=== PATIENT | female | born 1975 | race Caucasian/White ===

== ENCOUNTER 2017-01-05 06:31 | Emergency (ER) | payer OTHER ==
[~2017-01-05] VITALS: Ht 149.9 cm; Wt 65.0 kg
[~2017-01-05 06:31] MED LIST: PENI500T PO; RANI150 PO; VALT1TAB26 PO; VALT500T PO
[2017-01-05 06:34] VITALS: BP 131/64; PULSE 65; RESP 16; TEMP 97.7; O2SAT 100
[2017-01-05] MEDS ORDERED: OMEP40CA2 PO (06:42)
[2017-01-05] MEDS ORDERED: SODIUM CHLOR 0.9% 1000 ML INJ 1,000 ML IV SCH (07:05)
[2017-01-05] MEDS ORDERED: MORPHINE SULFATE 4 MG/ML INJ IV PUSH ONE ×2 (07:15→08:45)
[2017-01-05] MEDS ORDERED: ONDANSETRON HCL 4 MG/2 ML VIAL IVP ONE (07:15)
[2017-01-05] MEDS ORDERED: SODIUM CHLORIDE 0.9% FLUSH 10 ML FLUSH IV FLUSH PRN (07:15)
--- NOTE | 2017-01-05 07:15 | PD ---
HPI Chief Complaint: Abdominal Pain Time Seen by Provider: 06:45 Travel History International Travel<30 days: No Contact w/Intl Traveler<30days: No Traveled to known affect area: No History of Present Illness HPI 41-year-old female presents to the emergency department for right upper quadrant abdominal pain with nausea. Patient was seen at [facility] 3 weeks ago and identified to have gallbladder disease. Patient was encouraged to follow-up as outpatient with general surgeon but has not yet had the opportunity to do so. Patient reports that she did have grown chicken reportedly last night. Patient rates pain as moderate to severe. Patient is unable to identify exacerbating or alleviating factors. Patient is [place] and Irish-speaking with spouse at bedside who is also [place] and Irish speaking do not desire [employer] translation service. Patient reports pain 10 over 10 in intensity. PFSH Past Medical History Narrative Medical GERD, gallbladder disease; no tobacco use; no surgery; nursing notes reviewed Hx Anticoagulant Therapy: No Cardiovascular Problems: No Chemotherapy: No Cerebrovascular Accident: No Diabetes: No Diminished Hearing: No GERD: Yes Reproductive: Yes (HERPES) Respiratory: No Immunizations Current: No Tetanus Vaccination: < 5 Years ?: Not LMP: 12/17/2016 : 3 Para: 2 Miscarriage: 0 : 1 Past Surgical History Surgical History: No Previous Surgery Hysterectomy: No Social History Alcohol Use: No Tobacco Use: No Substance Use: No Allergies-Medications (Allergen,Severity, Reaction): Coded Allergies: No Known Allergies (Verified , 02/12/16) Reported Meds & Prescriptions Reported Meds & Active Scripts Active Phenergan (Promethazine HCl) 25 Mg Tablet 25 Mg PO Q6H PRN Hilger (Hydrocodone-Acetaminophen) 5-325 mg Tab 1 Tab PO Q4H PRN Reported Omeprazole 40 Mg Cap 40 Mg PO DAILY Review of Systems Except as stated in HPI: all other systems reviewed are Neg Physical Exam Narrative GENERAL: Well-developed well-nourished female in obvious discomfort no respiratory distress SKIN: Warm and dry. HEAD: Normocephalic. EYES: No scleral icterus. No injection or drainage. NECK: Supple, trachea midline. No JVD or lymphadenopathy. CARDIOVASCULAR: Regular rate and rhythm without murmurs, gallops, or rubs. RESPIRATORY: Breath sounds equal bilaterally. No accessory muscle use. GASTROINTESTINAL: Abdomen soft, non-tender, no guarding or rebound. No clinical Lopez sign. Nondistended. MUSCULOSKELETAL: No cyanosis, or edema. BACK: Nontender without obvious deformity. No CVA tenderness. Data Data Last Documented VS Vital Signs Date Time Temp Pulse Resp B/P (MAP) Pulse Ox O2 Delivery O2 Flow Rate FiO2 01/05/17 09:25 72 16 116/72 (87) 97 01/05/17 06:34 97.7 Room Air Orders Orders Complete Blood Count With Diff (01/05/17 07:05) Comprehensive Metabolic Panel (01/05/17 07:05) Lipase (01/05/17 07:05) Iv Access Insert/Monitor (01/05/17 07:05) Morphine Inj (Morphine Inj) (01/05/17 07:15) Ondansetron Inj (Zofran Inj) (01/05/17 07:15) Sodium Chlor 0.9% 1000 Ml Inj (Ns 1000 M (01/05/17 07:05) Sodium Chloride 0.9% Flush (Ns Flush) (01/05/17 07:15) Ed Poc Ultrasound (01/05/17 07:05) Ed Urine Pregnancytest Poc (01/05/17 07:16) Us Abdomen Gallbladder (01/05/17 07:17) Morphine Inj (Morphine Inj) (01/05/17 08:45) Ondansetron Inj (Zofran Inj) (01/05/17 08:45) Labs Laboratory Tests Test 01/05/17 07:17 White Blood Count 6.6 TH/MM3 Red Blood Count 4.27 MIL/MM3 Hemoglobin 12.5 GM/DL Hematocrit 38.0 % Mean Corpuscular Volume 88.9 FL Mean Corpuscular Hemoglobin 29.2 PG Mean Corpuscular Hemoglobin Concent 32.9 % Red Cell Distribution Width 13.4 % Platelet Count 209 TH/MM3 Mean Platelet Volume 9.6 FL Neutrophils (%) (Auto) 54.9 % Lymphocytes (%) (Auto) 33.3 % Monocytes (%) (Auto) 7.8 % Eosinophils (%) (Auto) 3.5 % Basophils (%) (Auto) 0.5 % Neutrophils # (Auto) 3.6 TH/MM3 Lymphocytes # (Auto) 2.2 TH/MM3 Monocytes # (Auto) 0.5 TH/MM3 Eosinophils # (Auto) 0.2 TH/MM3 Basophils # (Auto) 0.0 TH/MM3 CBC Comment DIFF FINAL Differential Comment Blood Urea Nitrogen 14 MG/DL Creatinine 0.63 MG/DL Random Glucose 97 MG/DL Total Protein 6.8 GM/DL Albumin 3.1 GM/DL Calcium Level 7.9 MG/DL Alkaline Phosphatase 100 U/L Aspartate Amino Transf (AST/SGOT) 18 U/L Alanine Aminotransferase (ALT/SGPT) 22 U/L Total Bilirubin 0.1 MG/DL Sodium Level 141 MEQ/L Potassium Level 3.7 MEQ/L Chloride Level 108 MEQ/L Carbon Dioxide Level 25.3 MEQ/L Anion Gap 8 MEQ/L Estimat Glomerular Filtration Rate 105 ML/MIN Lipase 217 U/L [facility] Medical Decision Making Medical Screen Exam Complete: Yes Emergency Medical Condition: Yes Medical Record Reviewed: Yes Differential Diagnosis Abdominal pain, biliary colic, cholecystitis, peptic ulcer disease, gastritis, Narrative Course IV access obtained specimens collected and sent for resulting ultrasound ordered. Care signed over to oncoming physician Dr. Lizama Scripts Promethazine (Phenergan) 25 Mg Tablet 25 MG PO Q6H Y for NAUSEA OR VOMITING, #12 TAB 0 Refills Prov: Cris Lizama MD 01/05/17 Hydrocodone-Acetaminophen (Hilger) 5-325 mg Tab 1 TAB PO Q4H Y for PAIN, #12 TAB 0 Refills Prov: Cris Lizama MD 01/05/17 Yulia Cordova MD Jan 05, 2017 07:15
[2017-01-05 07:34] LABS: AUTOMATED NEUTROPHIL # 3.6 TH/MM3 (1.8-7.7); BASOPHIL % 0.5 % (0.0-2.0); EOSINOPHIL # 0.2 TH/MM3 (0-0.4); EOSINOPHIL % 3.5 % (0.0-4.0); HEMO FLAGS DIFF FINAL; LYMPH % 33.3 % (9.0-44.0); LYMPHOCYTE # 2.2 TH/MM3 (1.0-4.8); MEAN CELL VOLUME 88.9 FL (80.0-100.0); MEAN CORPUSCULAR HEMOGLOBIN 29.2 PG (27.0-34.0); MEAN CORPUSCULAR HGB CONC 32.9 % (32.0-36.0); MONO % 7.8 % (0.0-8.0); NEUT % 54.9 % (16.0-70.0); PLATELET COUNT 209 TH/MM3 (150-450); RED BLOOD COUNT 4.27 MIL/MM3 (4.00-5.30); RED CELL DISTRIBUTION WIDTH 13.4 % (11.6-17.2); WHITE BLOOD COUNT 6.6 TH/MM3 (4.0-11.0)
--- NOTE | 2017-01-05 07:49 | PD ---
Physical Exam Date Seen by Provider: Jan 05, 2017 Narrative This patient presents with a chief complaint of right upper quadrant pain. Her symptoms all started about 3 weeks ago. She was seen at an outside hospital and told that she had an infected gallbladder. She was treated with an unknown medication. She has continued to have symptoms since that time but the symptoms have been relatively mild. Her symptoms became acutely worse last night. She has had some associated nausea but no fever. No vomiting. No diarrhea. No urinary tract symptoms. Her pain is rated 10/10. She is unable to say whether or not there are any modifying factors. GENERAL: Awake and alert and in no acute distress. SKIN: warm/dry. HEAD: Normocephalic. EYES: Pupils equal and round. No scleral icterus. No injection or drainage. ENT: No nasal bleeding or discharge. Mucous membranes pink and moist. NECK: Trachea midline. Full range of motion without pain.. CARDIOVASCULAR: Regular rate and rhythm. Heart sounds are normal. RESPIRATORY: No accessory muscle use. Clear to auscultation. Breath sounds equal bilaterally. GASTROINTESTINAL: Abdomen soft. Right upper quadrant tenderness. Bowel sounds present. Nondistended. MUSCULOSKELETAL: No obvious deformities. NEUROLOGICAL: Awake and alert. No obvious cranial nerve deficits. Motor grossly within normal limits. Normal speech. PSYCHIATRIC: Appropriate mood and affect; insight and judgment normal. Data Data Last Documented VS Vital Signs Date Time Temp Pulse Resp B/P (MAP) Pulse Ox O2 Delivery O2 Flow Rate FiO2 01/05/17 06:34 97.7 65 16 131/64 (86) 100 Room Air Orders Orders Complete Blood Count With Diff (01/05/17 07:05) Comprehensive Metabolic Panel (01/05/17 07:05) Lipase (01/05/17 07:05) Iv Access Insert/Monitor (01/05/17 07:05) Morphine Inj (Morphine Inj) (01/05/17 07:15) Ondansetron Inj (Zofran Inj) (01/05/17 07:15) Sodium Chlor 0.9% 1000 Ml Inj (Ns 1000 M (01/05/17 07:05) Sodium Chloride 0.9% Flush (Ns Flush) (01/05/17 07:15) Ed Poc Ultrasound (01/05/17 07:05) Ed Urine Pregnancytest Poc (01/05/17 07:16) Us Abdomen Gallbladder (01/05/17 07:17) Morphine Inj (Morphine Inj) (01/05/17 08:45) Ondansetron Inj (Zofran Inj) (01/05/17 08:45) Labs Laboratory Tests Test 01/05/17 07:17 White Blood Count 6.6 TH/MM3 Red Blood Count 4.27 MIL/MM3 Hemoglobin 12.5 GM/DL Hematocrit 38.0 % Mean Corpuscular Volume 88.9 FL Mean Corpuscular Hemoglobin 29.2 PG Mean Corpuscular Hemoglobin Concent 32.9 % Red Cell Distribution Width 13.4 % Platelet Count 209 TH/MM3 Mean Platelet Volume 9.6 FL Neutrophils (%) (Auto) 54.9 % Lymphocytes (%) (Auto) 33.3 % Monocytes (%) (Auto) 7.8 % Eosinophils (%) (Auto) 3.5 % Basophils (%) (Auto) 0.5 % Neutrophils # (Auto) 3.6 TH/MM3 Lymphocytes # (Auto) 2.2 TH/MM3 Monocytes # (Auto) 0.5 TH/MM3 Eosinophils # (Auto) 0.2 TH/MM3 Basophils # (Auto) 0.0 TH/MM3 CBC Comment DIFF FINAL Differential Comment Blood Urea Nitrogen 14 MG/DL Creatinine 0.63 MG/DL Random Glucose 97 MG/DL Total Protein 6.8 GM/DL Albumin 3.1 GM/DL Calcium Level 7.9 MG/DL Alkaline Phosphatase 100 U/L Aspartate Amino Transf (AST/SGOT) 18 U/L Alanine Aminotransferase (ALT/SGPT) 22 U/L Total Bilirubin 0.1 MG/DL Sodium Level 141 MEQ/L Potassium Level 3.7 MEQ/L Chloride Level 108 MEQ/L Carbon Dioxide Level 25.3 MEQ/L Anion Gap 8 MEQ/L Estimat Glomerular Filtration Rate 105 ML/MIN Lipase 217 U/L [facility] Supervised Visit with LISA: No Differential Diagnosis Differential diagnosis of abdominal pain includes but is not limited to gastritis, pancreatitis, hepatitis, gastroenteritis, gallbladder disease, constipation, urinary retention, UTI, peptic ulcer disease, diverticulitis or appendicitis Narrative Course Patient presents complaining with right upper quadrant pain. She will be evaluated for possible acute cholecystitis. I have done a bedside ultrasound which confirms gallstones. A formal ultrasound has been ordered for measurement of gallbladder wall thickness, size of common bile duct, etc. CBC & BMP Diagram 01/05/17 07:17 Total Protein 6.8, Albumin 3.1 L, Calcium Level 7.9 L, Alkaline Phosphatase 100 , Aspartate Amino Transf (AST/SGOT) 18, Alanine Aminotransferase (ALT/SGPT) 22, Total Bilirubin 0.1 L Lipase is 217. This patient has gallstones but no evidence of cholecystitis. US: 1. Cholelithiasis. 2. Mild dilatation of the common bile duct up to 9.1 mm. Procedures Procedure Narrative Emergency department right upper quadrant ultrasound was performed with patient consent. Curvilinear probe was used in the transverse and sagittal views within the right upper quadrant revealing gallstones and gallstone shadowing. Diagnosis Primary Impression: Right upper quadrant pain Additional Impression: Cholelithiasis Qualified Codes: K80.20 - Calculus of gallbladder without cholecystitis without obstruction Referrals: Richard Alcazar MD 3 days Patient Instructions: Gallstones (DC), General Instructions, Narcotic given in the ED Med/Other Pt SpecificInfo: Prescription(s) given Scripts Promethazine (Phenergan) 25 Mg Tablet 25 MG PO Q6H Y for NAUSEA OR VOMITING, #12 TAB 0 Refills Prov: Cris Lizama MD 01/05/17 Hydrocodone-Acetaminophen ([place]erson) 5-325 mg Tab 1 TAB PO Q4H Y for PAIN, #12 TAB 0 Refills Prov: Cris Lizama MD 01/05/17 Disposition: 01 DISCHARGE HOME Condition: Stable Cris Lizama MD Jan 05, 2017 07:49
[2017-01-05 07:54] LABS: ANION GAP 8 MEQ/L (5-15); AST (GOT) 18 U/L (15-37); BICARBONATE 25.3 MEQ/L (21.0-32.0); BLOOD UREA NITROGEN 14 MG/DL (7-18); CHLORIDE 108 MEQ/L (98-107); GLOMERULAR FILTRATION RATE 105 ML/MIN (>89); POTASSIUM 3.7 MEQ/L (3.5-5.1); SODIUM (NA) 141 MEQ/L (136-145)
[2017-01-05 07:57] LABS: ALKALINE PHOSPHATASE 100 U/L (45-117); ALT (GPT) 22 U/L (10-53); TOTAL BILIRUBIN ADULT 0.1 MG/DL (0.2-1.0)
[2017-01-05] MEDS ORDERED: NORC5TAB PO (08:09)
[2017-01-05] MEDS ORDERED: PROM25TA10 PO (08:09)
[2017-01-05] MEDS ORDERED: ONDANSETRON HCL 4 MG/2 ML VIAL IV PUSH ONE (08:45)
--- NOTE | 2017-01-05 09:06 | RADRPT ---
EXAM DATE/TIME: 01/05/2017 08:34 [facility] COMPARISON: No previous studies available for comparison. INDICATIONS : Right upper quadrant pain. MEDICAL HISTORY : Gastroesophageal reflux disease. Abdominal pain. Herpes. SURGICAL HISTORY : ENCOUNTER: Initial ACUITY: 1 day PAIN SCORE: 4/10 LOCATION: Right upper quadrant MEASUREMENTS: LIVER: 13.8 cm length COMMON DUCT: 9 mm RIGHT KIDNEY: 10.4 x 3.9 x 4.9 cm FINDINGS: LIVER: Normal echotexture without focal lesion or ductal dilatation. COMMON DUCT: No intraluminal mass or stone visualized. The duct is prominent measuring up to 9.1 mm. GALLBLADDER: Cholelithiasis without wall thickening or pericholecystic fluid. 1.7 cm stone is noted at the neck of the gallbladder. PANCREAS: The visualized portions are within normal limits. RIGHT KIDNEY: No evidence of hydronephrosis, stone, or mass. CONCLUSION: 1. Cholelithiasis. 2. Mild dilatation of the common bile duct up to 9.1 mm. Gagan Szymanski MD on January 05, 2017 at 9:03 Board Certified Radiologist. This report was verified electronically.
[2017-01-05 09:25] VITALS: BP 116/72
== END 2017-01-05 09:58 | disposition home or self-care (01) ==
LOC: NEPC 06:31
DX: K80.20 Calculus of gallbladder without cholecystitis without obstruction (principal); K21.9 Gastro-esophageal reflux disease without esophagitis; K82.9 Disease of gallbladder, unspecified
CPT/HCPCS: 76705; 80053; 83690; 84703; 85025; 96361; 96374; 96375; 96376; 99285; J2270; J2405; J7030

== ENCOUNTER 2017-04-02 15:58 | Emergency (ER) | payer SELFPAY ==
[~2017-04-02] VITALS: Ht 152.4 cm; Wt 66.8 kg
[~2017-04-02 15:58] MED LIST changes: +NORC5TAB PO; +OMEP40CA2 PO; -PENI500T PO; +PROM25TA10 PO; -RANI150 PO; -VALT1TAB26 PO; -VALT500T PO
[2017-04-02 15:59] VITALS: BP 116/65; PULSE 70; RESP 16; TEMP 98.7; O2SAT 100
--- NOTE | 2017-04-02 17:21 | RADRPT ---
EXAM DATE/TIME: 04/02/2017 16:43 [facility] COMPARISON: No previous studies available for comparison. INDICATIONS : Slammed hand in truck door MEDICAL HISTORY : None. SURGICAL HISTORY : None. ENCOUNTER: Initial ACUITY: 1 day PAIN SCORE: 10/10 LOCATION: Right Hand FINDINGS: Three view examination of the right hand demonstrates no soft tissue swelling, dislocation, or fractu re. The carpal bones appear intact. The interphalangeal and metacarpophalangeal joints are intact. Bony mineralization is normal. CONCLUSION: Negative for fracture or dislocation. Follow up in 7-10 days is suggested if symptoms persist. Jeyson Sorensen MD FACR on April 02, 2017 at 17:19 Board Certified Radiologist. This report was verified electronically.
[2017-04-02] MEDS ORDERED: VESI5TAB2 PO (18:41)
[2017-04-02] MEDS ORDERED: [UNRECOGNIZED DRUG - OTHER] PO (18:41)
[2017-04-02] MEDS ORDERED: [UNRECOGNIZED DRUG - OTHER] PO (18:41)
[2017-04-02] MEDS ORDERED: BACT800T5 PO (19:03)
--- NOTE | 2017-04-02 19:11 | PD ---
HPI . Right hand injury Chief Complaint: Injury Time Seen by Provider: 18:39 Travel History International Travel<30 days: Yes Contact w/Intl Traveler<30days: Yes Name of Country Traveled to: [place] Traveled to known affect area: No History of Present Illness HPI 42-year-old female presents emergency department for evaluation of right hand injury after shutting her hand in the car door on Friday. Patient is concerned that her left thumb is becoming infected at the base of the nail. Patient has any fever, chills, malaise. Patient has full range of motion of right hand. Patient is Congolese-speaking. [employer] use to communicate. Patient denies any major medical history and doesn't take any daily medicine. PFSH Past Medical History Hx Anticoagulant Therapy: No Cardiovascular Problems: No Chemotherapy: No Cerebrovascular Accident: No Diabetes: No Diminished Hearing: No GERD: Yes Reproductive: Yes (HERPES) Respiratory: No Immunizations Current: No : 3 Para: 2 Miscarriage: 0 : 1 Past Surgical History Hysterectomy: No Social History Alcohol Use: No Tobacco Use: No Substance Use: No Allergies-Medications (Allergen,Severity, Reaction): Coded Allergies: No Known Allergies (Verified Adverse Reaction, Unknown, 04/02/17) Reported Meds & Prescriptions Reported Meds & Active Scripts Active Diclofenac Sodium DR (Diclofenac Sodium) 75 Mg Tabdr 75 Mg PO BID Bactrim DS (Sulfamethoxazole-Trimethoprim) 800-160 Mg Tab 1 Tab PO BID 10 Days Reported Vesicare (Solifenacin) 5 Mg Tab 5 Mg PO DAILY [Unamol] 5 Mg PO [Peditimod] 400 Mg PO DAILY Review of Systems Except as stated in HPI: all other systems reviewed are Neg Physical Exam Narrative GENERAL: Well-nourished, well-developed 42-year-old female patient in no acute distress. Nontoxic-appearing. SKIN: Paronychia with mild erythema noted to the thumb on the right hand. Focused skin assessment warm/dry. HEAD: Normocephalic. Atraumatic. EYES: No scleral icterus. No injection or drainage. NECK: Supple, trachea midline. No JVD or lymphadenopathy. CARDIOVASCULAR: Regular rate and rhythm without murmurs, gallops, or rubs. RESPIRATORY: Breath sounds equal bilaterally. No accessory muscle use. GASTROINTESTINAL: Abdomen soft, non-tender, nondistended. MUSCULOSKELETAL: No cyanosis, or edema. BACK: Nontender without obvious deformity. No CVA tenderness. Data Data Last Documented VS Vital Signs Date Time Temp Pulse Resp B/P (MAP) Pulse Ox O2 Delivery O2 Flow Rate FiO2 04/02/17 19:20 04/02/17 15:59 98.7 70 16 100 Room Air Orders Orders Hand, Complete ([id number]) (04/02/17 ) Ed Discharge Order (04/02/17 19:11) MDM Medical Decision Making Medical Screen Exam Complete: Yes Emergency Medical Condition: Yes Differential Diagnosis Differential diagnoses include but not limited to cellulitis, paronychia, abscess Narrative Course 42 year old female presents to the emergency department for evaluation of right hand injury. X-ray of the right hand is negative for a fracture or dislocation. I&D performed to paronychia on the thumb of the right hand. Please see my procedural narrative. Patient is discharged home with prescription for Bactrim and instructions to keep the area clean and dry, return to the emergency department with any worsening condition but otherwise follow up with primary care. Last Impressions Hand X-Ray 04/02/17 0000 Signed Impressions: Service Date/Time: Friday, April 02, 2017 16:43 - CONCLUSION: Negative for fracture or dislocation. Follow up in 7-10 days is suggested if symptoms persist. Jeyson Sorensen MD FACR Procedures Procedure Narrative The area was prepped and was sterilely draped. Chloride ethyl spray used to anesthetize the area properly. A number 11 scalpel was used to make a 0.5 cm incision across the area of the paronychia. The paronychia was drained, complex loculations were broken down, and irrigated with normal saline. Cultures were obtained. Sterile dressing applied. Patient advised to have area rechecked in two days. Diagnosis Primary Impression: Paronychia of thumb, right Referrals: Primary Care Physician Patient Instructions: General Instructions, Paronychia (ED) Additional Instructions: Please return to emergency department if your symptoms return or worsen. Follow up with your primary care provider. Take medications as prescribed. Use Tylenol or ibuprofen as needed for pain. Keep wound clean and dry. Return in 2 days for wound recheck. Med/Other Pt SpecificInfo: Prescription(s) given Scripts Diclofenac Sodium (Diclofenac Sodium DR) 75 Mg Tabdr 75 MG PO BID, #14 TAB 0 Refills Prov: [employer] 04/02/17 Sulfamethoxazole-Trimethoprim (Bactrim DS) 800-160 Mg Tab 1 TAB PO BID for Infection for 10 Days, #20 TAB 0 Refills Prov: Mckenzie Adams 04/02/17 Disposition: 01 DISCHARGE HOME Condition: Stable Mckenzie Adams Apr 02, 2017 19:11
[2017-04-02] MEDS ORDERED: DICL75TA PO (19:16)
== END 2017-04-02 19:49 | disposition home or self-care (01) ==
LOC: NEPK 15:58
DX: L03.011 Cellulitis of right finger (principal); K21.9 Gastro-esophageal reflux disease without esophagitis; Z79.899 Other long term (current) drug therapy
CPT/HCPCS: 10060; 73130